=== PATIENT | male | born 2000 | race Caucasian/White ===

== ENCOUNTER 2022-06-03 14:55 | Emergency (ER) | payer OTHER, MEDICAID, SELFPAY ==
[2022-06-03 14:57] VITALS: BP 133/63; PULSE 67; RESP 18; TEMP 37.2; O2SAT 97; BMI 29.0
--- NOTE | 2022-06-03 18:24 | EDS_ITS ---
HPI History of Present Illness Chief Complaint: GI Bleed Detail of Chief Complaint: Intermittent vomiting x3 weeks with blood-tinged yesterday and today Informant: patient Onset/Context/Timing Onset: Weeks Context: Sudden Onset Timing: Intermittent Quality: Vomiting, blood-tinged yesterday and today x1 Location: GI Current Severity: Mild Maximum Severity: Mild Worsened by: Nothing Relieved by: Nothing Associated Symptoms Associated Symptoms: Nothing Narrative Narrative: Patient is a 21-year-old male who presents with blood-tinged emesis yesterday and today. He has been intermittently vomiting for the past 3 weeks. He has history of GERD. He denies black or maroon-colored stool. Denies orthostatic symptoms. He denies fatigue. He denies dyspnea. Prior similar symptoms: No (To blood-tinged emesis) Recent Illness/Hospitalization: No PFSH PFS Medical History GERD (gastroesophageal reflux disease) Allergy/AdvReac Type Severity Reaction Status Date / Time No Known Allergies Allergy Verified 06/03/22 17:54 Social History (Updated 06/03/22 @ 18:[address] Rafael Denise MD) Smoking Status: Former smoker alcohol intake: current substance use type: does not use ROS ROS ED Constitutional Constitutional ED: Denies chills, fever(s) or subjective Cardiovascular Cardiovascular: Denies chest pain or palpitations Respiratory/Chest Respiratory/Chest: Denies cough, dyspnea or dyspnea on exertion Gastrointestinal Gastrointestinal: Reports nausea and vomiting; Denies abdominal pain, diarrhea or melena Genitourinary Genitourinary ED: Denies dysuria, LMP (females 10-50) or urinary frequency Musculoskeletal Musculoskeletal: Denies arthralgias, back pain, myalgias or neck pain Psychiatric Psychiatric: Denies anxiety Hematologic/Lymphatic Hematologic/Lymphatic: Denies easy bruising or lymphadenopathy EXAM Physical Exam Const Vital Signs: 06/03/22 14:57 Temperature 98.9 F Temperature Source Temporal Pulse Rate 67 Respiratory Rate 18 Blood Pressure 133/63 H Blood Pressure Mean 86 Pulse Ox 97 Oxygen Delivery Method Room Air Positive well nourished and well developed General Appearance ED: well developed and NAD; Negative for cyanotic, diaphoretic or pallor HEENT Reports moist mucous membranes HEENT Narrative: There pain. Ears normal. Mucosa moist. Eyes PERRL and EOMs intact bilaterally General Eye ED: Negative for pale conjunctiva or scleral icterus Neck no lymphadenopathy, supple and no JVD Chest Wall inspection of chest normal Resp normal respiratory effort and clear to auscultation bilaterally Cardio regular rate, regular rhythm, S1 normal heart sound, S2 normal heart sound and no murmurs GI normal to inspection, nondistended, normoactive bowel sounds, non-tender, non- distended and no masses; Negative for hepatosplenomegaly Back/Spine no CVA tenderness Extremity normal to inspection Neuro oriented x3, CN's II-XII intact bilaterally and no sensory deficits noted Sensorium / Orientation: alert Motor Exam: strength 5/5 throughout Psych mental status grossly normal Skin no rashes or lesions noted, no wounds and skin turgor normal General Skin Exam: Negative for jaundice or pallor MDM MDM MDM Narrative Medical decision making narrative: Suspect patient has Maira-Caldwell tear. Clinically does not appear dehydrated. NG was ordered. Patient declined. Patient understands reason NG was ordered. He would rather go home. Will discharge with appropriate home-going structures for Maira-Caldwell tear. Discharge Plan Triage Chief Complaint: GI Bleed ED Provider: Rafael Denise Dx/Rx/DC Orders Clinical Impression: Maira-Caldwell tear Instructions: Maira-Caldwell Tear Primary Care Provider: Care Physician,No Primary Referrals: Care Physician,No Primary [Primary Care Provider] - Doctor,Your [Non-Staff] - 3-5 Days Activity Restrictions/Additional Instructions: Return if you have black or maroon-colored stool. Return if your emesis has appearance of coffee grounds Disposition Disposition: Home, Self Care
[2022-06-03 18:30] VITALS: RESP 18
--- NOTE | 2022-06-03 18:31 | ED.RN ---
THIS RN SPOKE WITH PATIENT REGARDING THE PROCEDURE OF PLACING A NG TUBE FOR BLOOD IN STOMACH. PT STATES HE DOES NOT WANT PROCEDURE AND UNDERSTANDS THE RISKS OF NOT HAVING IT DONE. HE STATES HE WOULD JUST LIKE TO GO TO BED AND GET A WORK NOTE. DR. DHALIWAL MADE AWARE OF PATIENT'S DECISION
== END 2022-06-03 18:38 | disposition home or self-care (01) ==
PROVIDERS: Emergency Provider Emergency Medicine; Visit Provider Emergency Medicine
DX: K22.6 Gastro-esophageal laceration-hemorrhage syndrome (principal); Z87.891 Personal history of nicotine dependence; R11.2 Nausea with vomiting, unspecified
CPT/HCPCS: 99282